=== PATIENT | male | born 1945 | race African-American/Black ===

== ENCOUNTER 2018-01-23 14:43 | Emergency (ER) | payer MEDICARE ==
[~2018-01-23] VITALS: Ht 185.4 cm; Wt 98.0 kg
[~2018-01-23 14:43] MED LIST: ACID CONTROL MA20 MG PO; AMLODIPINE BESYL5 MG PO; ANTI-DIARRHE2 M1 PO; BENADRYL25 MG OR; BICALUTAMIDE50 MG PO; COMPLERA PO; GLIPIZIDE ER10 M1 PO; GLIPIZIDE10 MG PO; HYDROCODONE/APAP PO; LISINOPRIL20 M1 OR; LISINOPRIL20 M1 PO; MELOXICAM7.5 MG PO; METFORMIN1000 MG PO; METFORMIN500 MG PO; METOPROL TAR25 M1 OR; NAPROXEN500 MG OR; NO MEDS; NORVIR100 MG PO; PRAVASTATIN20 MG PO; PREZISTA800 MG PO; TRUVADA PO; VICODIN1 TA1 PO
[2018-01-23] MEDS ORDERED: PERCOCET 5/325M1 TAB PO (16:28)
[2018-01-23 17:06] VITALS: BP 143/74
== END 2018-01-23 16:52 | disposition home or self-care (01) ==
LOC: ED 14:43
PROC: 2W3QX1Z Immobilization of Right Lower Leg using Splint (ICD-10-PCS; principal; 2018-01-23)
DX: S82.301A Unspecified fracture of lower end of right tibia, initial encounter for closed fracture (principal); S82.831A Other fracture of upper and lower end of right fibula, initial encounter for closed fracture; W18.30XA Fall on same level, unspecified, initial encounter; X50.1XXA Overexertion from prolonged static or awkward postures, initial encounter; Y93.01 Activity, walking, marching and hiking; Y92.009 Unspecified place in unspecified non-institutional (private) residence as the place of occurrence of the external cause; I10 Essential (primary) hypertension

== ENCOUNTER → 2018-02-11 10:00 | Emergency (ER) | payer MEDICARE ==
[~2018-02-11 10:00] MED LIST changes: +PERCOCET 5/325M1 TAB PO
== END | disposition left against medical advice (07) ==
LOC: LWOBS 10:00 → ED 10:00
DX: Z91.19 Patient's noncompliance with other medical treatment and regimen (principal)

== ENCOUNTER 2018-09-02 11:07 | Inpatient (IN) | payer MEDICARE, MEDICAID ==
[~2018-09-02] VITALS: Ht 185.4 cm; Wt 78.0 kg
[2018-09-02] MEDS ORDERED: LORTAB 7.57.5 MG PO (12:46)
[2018-09-02] MEDS ORDERED: TYLENOL325 MG PO (12:47)
[2018-09-02] MEDS ORDERED: ARTIFIC TEAR OU (12:48)
[2018-09-02] MEDS ORDERED: JANUVIA100 MG PO (12:48)
[2018-09-02] MEDS ORDERED: DOCUSATE CAL240 MG PO (12:48)
[2018-09-02] MEDS ORDERED: MIRALAX3350 NF PO (12:49)
[2018-09-02] MEDS ORDERED: MILK OF MAG30 ML/UDC PO (12:49)
[2018-09-02] MEDS ORDERED: LEVEMIR100 UNIT/M SC (12:49)
[2018-09-02] MEDS ORDERED: NOVOLOG FL100 UNIT/M SC (12:50)
[2018-09-02] MEDS ORDERED: ZYRTEC10 MG PO (12:50)
[2018-09-02] MEDS ORDERED: LISINOPRIL20 M1 PO (12:51)
[2018-09-05] VITALS (7 sets, daily range): BP systolic 126–156; BP diastolic 72–92
--- NOTE | 2018-09-05 17:25 | NUR ---
PT ARRIVED FROM OR VIA BED, WITH IV SITE INTACT. NO REDNESS OR EDEMA. DRESSING ON LEFT SHOULDER CDI WITH SLING IN PLACE. BRIEF IN PLACE PT STATED" I HAVE HAD A BM".
--- NOTE | 2018-09-05 17:45 | NUR ---
ASSESSMENT IS COMPLETED: IV SITE IS FREE FROM REDNESS OR EDEMA. HR IS REG,PULSES ARE STRONG X4, ABD IS SOFT WITH ACTIVE BS. BREATH SOUNDS ARE CLEAR. PT HAS A BRIEF ON , SOILED THE BRIEF. ASSISTING THE SMOKED MEAT PREPARER TO CLEAN PT UP. PT SCOOTS DOWN IN THE BED. HAS BEEN PULLED BACK IN BED., LEFT ARM IN THE SLING. DRESSING IN PLACE.
--- NOTE | 2018-09-05 20:00 | NUR ---
PATIENT RESTING IN BED AT THIS TIME-AWAKE ALERT AND ORIENTEDX3. PATIENT WITH POST-OP LEFT SHOULDER SURGERY. DRESSING TO LEFT SHOULDER IS CLEAN DRY AND INTACT. LEFT ARM IN SLING. CMS TO LEFT FINGERS WNL. ELEVATED ON PILLOWS. IV SITE TO RIGHT WRIST AREA WITH IVF LR PATENT AND INFUSING AT 100CC/HR. SCD'D IN PLACE. USE ICE PACK TO LEFT SHOULDERE INTERMITTANTLY. INSTRUCTED ON USE OF IS Q1H WHILE AWAKE XREPS OF 10. ABLE TO DEMONSTRATE ABILITY T USE DEVICE PROPERLY. SAFETY PRECAUTIONS REINFORCED.CALL LIGHT IN REACH. WILL CONT TO MONITOR.
[2018-09-06] VITALS (7 sets, daily range): BP systolic 154–177; BP diastolic 88–95
--- NOTE | 2018-09-06 | NUR ---
PATIENT APPEARS SLEEPING AT THIS TIME WITH EYES CLOSED AND HOB SLIGHTLY ELEVATED. SLING TO LEFT ARM IN PLACE. CMS TO LEFT FINGERS WNL. IVF PATENT AND INFUSING VIA RIGHT WRIST SITE. CALL LIGHT IN REACH. WILL CONT TO MONITOR.
--- NOTE | 2018-09-06 02:42 | NUR ---
RESPONDED TO PATIENT CALL LIGHT-FOUND URINAL WITH 300CC OF TIFFANIE URINE IN IT. ALSO FOUND THE BED TO BE WET AND SOILED. MAX ASSIST TO GET PATIENT OOB TO THE CHAIR. LINENS WERE COMPLETELY CHANGED. PATIENT MAX ASSIST BACK INTO BED. PATIENT WAS GIVEN PARTIAL BATH WITH SOAP AND WATER TO PERINEAL AND BUTTOCKS AREA. REPOSITIONED IN BED. LEFT SHOULDER DRESSING REMAINS IN PLACE. ICE PACK TO THE AFFECTED AREA FOR COMFORT. SLING REMAINS IN PLACE TO THE LEFT AREM. CMS TO LEFT FINGERS ARE WNL. PATIENT C/O 8/10 ON PAIN SCALE. MEDICATED WITH DILAUDID 1MG IVP FOR PAIN. PATIENT STATES THAT HE RECENTLY ALSO HAD SURGERY ON HIS RIGHT LE. NEEDS MAX ASSIST FOR TRANSFERS.SAFETY PRECAUTIONS REINFORCED. CALL LIGHT IN REACH. WILL CONT TO MONITOR.
[2018-09-06 05:19] LABS: HEMATOCRIT 38.7 % (39.0-50.0); HEMOGLOBIN 12.3 g/dl (14.0-18.0)
--- NOTE | 2018-09-06 05:42 | NUR ---
PATIENT RESTING IN BED WITH NO COMPLAINTS AT THIS TIME. CALL LIGHT IN REACH. WILL CONT TO MONITOR.
--- NOTE | 2018-09-06 07:05 | NUR ---
BEDSIDE REPORT RECEIVED BY LAWANDA. PT STATED HE VOMITED A SMALL AMOUNT. STATED I WILL MEDICATED HIM WITH ZOFRAN. PT DENIES ANY OTHER NEEDS AT THIS TIME. CALL LIGHT IN REACH.
--- NOTE | 2018-09-06 08:03 | NUR ---
ASSESSMENT DONE. PT IS A&O X3. REPS EVEN AND UNLABORED. MEDICATED PT WITH DILAUDID FOR PAIN IN LEFT SHOULDER 06/24 SEE EMAR. PT STATED THAT ZOFRAN HELPED WITH HIS NAUSEA. 20 RAC AT LR/100ML THAT INFUSING WELL. ENCOURAGE PT TO USE INCENTIVE SPIROMETER. PT VERBALIZED UNDERSTANDING. PT DENIES ANY OTHER NEEDS AT THIS TIME. SCD IN PLACE. SAFETY PRECAUTIONS REINFORCED AND CALL LIGHT IN REACH.
--- NOTE | 2018-09-06 10:16 | NUR ---
PT IS RESTING IN BED WITH NO S/S OF DISTRESS NOTED. PT DENIES NEEDS AT THIS TIME. CALL LIGHT IN REACH.
--- NOTE | 2018-09-06 11:50 | NUR ---
AT BEDSIDE TO ASSESS PT. SETUP PT FOR LUNCH. PT STATED PAIN COMES AND GOES. PT DENIES PAIN AT THIS TIME. CALL LIGHT IN REACH.
--- NOTE | 2018-09-06 11:55 | NUR ---
PT IS SITTING IN THE SIDE OF THE BED EATING HIS LUNCH WITH NO S/S OF DISTRESS NOTED. DR. CRUZ IN ROOM TO ASSESS. PT DENIES NEEDS AT THIS TIME. IN ROOM. CALL LIGHT IN REACH.
--- NOTE | 2018-09-06 14:03 | NUR ---
MEDICATED PT WITH ZOFRAN. PT VOMITED 50ML. VACCINE CUSTOMER REPRESENTATIVE IN ROOM TO CHANGE PT. PT DENIES ANY OTHER NEEDS AT THIS TIME. CALL LIGHT IN REACH.
--- NOTE | 2018-09-06 15:32 | NUR ---
PT IS RESTING IN BED WITH NO S/S OF DISTRESS NOTED. PT DENIES NAUSEA AT THIS TIME. PT DENIES NEEDS AT THIS TIME. CALL LIGHT IN REACH.
--- NOTE | 2018-09-06 16:13 | NUR ---
ATTEMPTED P.T. EVAL TODAY. HOWEVER, PT REFUSED STATING THAT HE HAD BEEN FEELING SICK AND WAS THROWING UP. AGREED TO PARTICIPATE TOMORROW.
--- NOTE | 2018-09-06 19:30 | NUR ---
PATIENT RESTING IN BED AT THIS TIME WITH EYES CLOSED AND APPEARS SLEEPING AT THIS TIME. RESP ARE EVEN AND UNLABORED. DRESSING TO LEFT SHOULDER HAS BEEN REMOVED AND SITE APPEARS WITHOUT ANY S/S OF INFECTION AT THIS TIME. CMS TO LEFT FINGERS WNL. IV SITE TO RIGHT AC INTACT WITH IVF PATENT AND INFUSING AT 100CC/HR. SITE REMAINS HEALTHY AT THIS TIME. CALL LIGHT IN REACH., WILL CONT TO MONITOR.
--- NOTE | 2018-09-06 23:54 | NUR ---
APPEARS SLEEPING AT THIS TIME WITH HOB SLIGHTLY ELEVATED AND EYES CLOSED. RESP ARE EVEN AND UNLABORED. CALL LIGHT IN REACH. WILL CONT TO MONITOR.
[2018-09-07] VITALS (7 sets, daily range): BP systolic 128–180; BP diastolic 74–97
--- NOTE | 2018-09-07 01:00 | NUR ---
PATIENT RESTING IN BED-EITHER INCONT OF URINE OR SPILLED THE URINAL. PATIENT ASSISTED WITH WASHING UP AND PERSONEL/VANCE CARE WITH SOAP AND H20. LINENS WERE CHANGED. PATIENT STILL ONLY TAKING SIPS OF PO FLUIDS-STATES THAT HIS THROAT IS SORE. STILL RESISTANT TO MAKE EFFORT TO GET OOB TO BSC AND OR INCREASE HIS ACTIVITY. STATES THAT IT HURTS TOO MUCH. SAFETY PRECAUTIONS REINFORCED. AND ENCOURAGED TO INCREASE ACTIVITY TO PREVENT ANY POST-OP COMPLICATIONS. ENCOURAGED USE OF IS DEMONSTRATED EARLIER. STATES THAT HE WILL DO IT. SAFETY PRECAUTIONS REINFORCED. CALL LIGHT IN REACH. WILL CONT TO MONITOR.
--- NOTE | 2018-09-07 04:24 | NUR ---
PATIENT RESTING IN BED-C/O LEFT SHOULDER AND THROAT PAIN. MEDICATED WITH PERCOCET 10/325MG PO FOR PAIN. STILL ONLY TAKING SIPS OF PO FLUIDS. IVF LR PATENT AND INFUSING AT 100CC/HR VIA RIGHT AC SITE. SAFETY PRECAUTIONS REINFORCED. CALL LIGHT IN REACH. WILL CONT TO MONITOR.
[2018-09-07 05:02] LABS: HEMATOCRIT 36.9 % (39.0-50.0); HEMOGLOBIN 11.9 g/dl (14.0-18.0); IMMATURE GRANULOCYTES 0.7 % (0.0-5.0); MEAN CELL VOLUME 85.2 fL CALC (80.0-100.0); MEAN CORPUSCULAR HGB 27.5 pG CALC (26.0-32.0); MEAN CORPUSCULAR HGB CONC 32.2 g/L CALC (32.0-36.0); NEUT# 6.82 thou/uL (1.82-7.42); RED BLOOD COUNT 4.33 mill/uL (4.70-6.10); RED CELL DISTRI WIDTH 13.6 % (11.5-15.5)
[2018-09-07 05:19] LABS: ALBUMIN 3.3 g/dL (3.2-5.0); ALKALINE PHOSPHATASE 140 u/l (38-126); BILIRUBIN, TOTAL 0.7 mg/dL (0.0-1.4); BUN 10 mg/dL (8-23); BUN/CREATININE RATIO 14 (12-20 (CALC)); CARBON DIOXIDE 26 mmol/l (22-30); CHLORIDE 100 mmol/l (95-108); CREATININE 0.7 mg/dL (0.7-1.3); GFR > 60 ML/MIN (>=60 (CALC)); GFR FOR AFR.AMER. > 60 ML/MIN (>=60 (CALC)); MAGNESIUM 1.7 mg/dL (1.6-2.3); POTASSIUM 3.8 mmol/l (3.5-5.1); SGOT/AST 26 u/l (19-48); TOTAL PROTEIN 6.6 g/dL (6.3-8.2)
[2018-09-07 05:23] LABS: ANION GAP 13 (6-22 (CALC)); SODIUM 135 mmol/l (137-146)
--- NOTE | 2018-09-07 08:15 | NUR ---
ASSESSMENT IS COMPLETED: IV SITE IS FREE FROM REDNESS OR EDEMA. HR IS REG,PULSES ARE STRONG X4, ABD IS SOFT WITH ACTIVE BS. BREATH SOUNDS ARE CLEAR, BILATERALLY. LEFT ARM IS CDI. CONTINUE TO OSBERVE AND MONITOR.
--- NOTE | 2018-09-07 12:15 | NUR ---
PT IS RELAXING IN THE WC FROM [facility] PHYSICAL THERAPY PLACED IN THE CHAIR. TOLERATING WELL. IV SITE IS FREE FROM REDNESS OR EDEMA. CONTINUE TO OSBERVE AND MONITOR.
--- NOTE | 2018-09-07 16:15 | NUR ---
PT C/O BEING IN THE CHAIR FOR 3 HRS, IV SITE REMAINS FREE FROM REDNESS OR EDEMA. NO DISTRESS NOTED. PHYSICAL THERAPY PLACED BACK INTO BED AT 1430. CONTINUE TO OBSERVE AND MONITOR.
--- NOTE | 2018-09-07 19:28 | NUR ---
PATIENT RESTING IN BED WITH HOB SLIGHTLY ELEVATED AND EYES CLOSED. APPEARS SLEEPING WITH RESP EVEN AND UNLABORED. CALL LIGHT IN REACH. WILL CONT TO MONITOR.
--- NOTE | 2018-09-07 21:10 | NUR ---
PATIENT RESTING IN BED AWAKE ALERT AND ORIENTEDX3. PATIENT MEDICATED FOR POST-OP LEFT SHOULDER PAIN WITH PERCOCET ORDERED. SALINE LOCK TO RIGHT AC IN PLACE AND APPEARS HEALTHY AT THIS TIME. [id number] WITH NOVALOG 2UNITS SQ RIGHT ARM. SAFETY PRECAUTIONS REINFORCED. CALL LIGHT IN REACH.
--- NOTE | 2018-09-07 23:27 | NUR ---
APPEARS SLEEPING AT THIS TIME WITH HOB ELEVATED AND EYES CLOSED. RESP ARE EVEN AND UNLABORED. CALL LIGHT IN REACH. WILL CONT TO MONITOR.
--- NOTE | 2018-09-08 02:53 | NUR ---
PATIENT APPEARS SLEEPING AT THIS TIME WITH EYES CLOSED AND HOB SLIGHTLY ELEVATED. RESP ARE EVEN AND UNLABORED. CALL LIGHT IN REACH. WILL CONT TO MONITOR.
--- NOTE | 2018-09-08 03:41 | NUR ---
URINAL EMPTIED FOR 400CC OF TIFFANIE URINE. PATIENT MEDICATED WITH PERCOCET FOR C/O PAIN-7/10 ON PAIN SCALE. PATIENT EATING SNACK OF VANILLA PUDDING. SAFETY PRECAUTIONS REINFORCED. CALL LIGHT IN REACH. WILL CONT TO MONITOR.
[2018-09-08 03:55] VITALS: BP 154/92
--- NOTE | 2018-09-08 04:35 | NUR ---
PATIENT MAX ASSIST OOB TO WHEELCHAIR AND INTO BR FOR SHOWER-COMPLETE LINEN CHANGE WAS DONE AND PATIENT ASSISTED WITH SHOWER. BACK, VANCE, AND FOOT CARE ASSISTED WITH. STRESSED THE IMPORTANCE OF PROPER FOOT CARE AND INSPECTIONS IN DIAB PATIENT. PATIENT ASSISTED BACK TO THE BED. REPOSITIONED IN BNED. HOB SLIGHTLY ELEVATED, SAFETY PRECAUTIONS REIFORCED. CALL LIGHT IN REACH. WILL CONT TO MONITOR.
[2018-09-08 05:39] LABS: HEMOGLOBIN 10.6 g/dl (14.0-18.0); MEAN CELL VOLUME 85.9 fL CALC (80.0-100.0); MEAN CORPUSCULAR HGB 27.6 pG CALC (26.0-32.0); MEAN CORPUSCULAR HGB CONC 32.1 g/L CALC (32.0-36.0); NEUT# 5.7 thou/uL (1.82-7.42); RED BLOOD COUNT 3.84 mill/uL (4.70-6.10); RED CELL DISTRI WIDTH 13.6 % (11.5-15.5)
[2018-09-08 05:44] LABS: ALKALINE PHOSPHATASE 125 u/l (38-126); ANION GAP 11 (6-22 (CALC)); BILIRUBIN, TOTAL 0.6 mg/dL (0.0-1.4); BUN 13 mg/dL (8-23); BUN/CREATININE RATIO 15 (12-20 (CALC)); CARBON DIOXIDE 28 mmol/l (22-30); CHLORIDE 101 mmol/l (95-108); CREATININE 0.8 mg/dL (0.7-1.3); GFR > 60 ML/MIN (>=60 (CALC)); GFR FOR AFR.AMER. > 60 ML/MIN (>=60 (CALC)); MAGNESIUM 1.8 mg/dL (1.6-2.3); SGOT/AST 21 u/l (19-48); SODIUM 136 mmol/l (137-146); TOTAL PROTEIN 6.3 g/dL (6.3-8.2)
--- NOTE | 2018-09-08 07:05 | NUR ---
PT REPORT RECIEVED FROM AMANDA WEBBER. PT SLEEPING IN BED NO S/S OF DISTRESS. CALL LIGHT IN REACH. WILL CONTINUE TO MONITOR
[2018-09-08 07:47] VITALS: BP 159/91
--- NOTE | 2018-09-08 07:47 | NUR ---
PT ASSESSMENT COMPLETE. PT A/O X3. SPEECH IS CLEAR. IRREGULAR HEART SOUNDS NOTED. RESP EVEN AND UNLABORED. LUNG SOUNDS CLEAR. INCENTIVE SPIROMETER AT BEDSIDE, ENCOURAGED USE. BOWEL SOUNDS HYPOACTIVE. PT STATES LAST BM 09/07/18. STRONG RADIAL PULSES, WEAK PEDAL PULSES. LEGS ELEVATED. RT SHOULDER POST OP, JENNIFER. MINIAML SWELLING AROUND INCISION AREA. REPOSITONED RT SHOULDER FOR COMFORT. #20 RAC SL. FLUSHED AND PATENT. SITE APPEARS HEALTHY. PT DENIES PAIN OR NEEDS AT THIS TIME. URINAL AT BEDSIDE. PLAN OF CARE DISCUSSED. SAFETY PRECAUTIONS IN PLACE. CALL LIGHT IN REACH. WILL CONTINUE TO MONITOR
--- NOTE | 2018-09-08 10:16 | NUR ---
Pt. found resting in bed, treatment plan explain and pt. in agreement to participate in physical therapy. HOB elevated for AROM L hip flexion/extension x10 repetitions, PROM R hip flexion/extension x10 repetitions, R and L quad. sets x10 repetitions, R and L glut. sets x10 repetitions and in sitting we practiced sit to stand using RUE for push off and LLE for lifting x5 repetitions with max assist x2 (R walking boot on). The pt. also participated in functional activity of transfer training for supine to sit with mod assist x2 and then from bed to wheelchair using slidding boad with max. assist x2 and continual verbal/tactile cues to maintain L shoulder restrictions. Transfer from wheel chair to bed using slidding board with max. assist x2 for return to resting in bed after treatment with continual verbal/tactile cues. HOB was elevated and heels off loading with pillows. Gait belt and non skid socks used during treatment. Call light reviewed and left within reach, pt. left resting comfortably without questions or concerns.
[2018-09-08 11:30] VITALS: BP 99/53
--- NOTE | 2018-09-08 12:00 | NUR ---
PT SITTING UP IN BED EATING LUNCH. DENIES ANY PAIN OR NEEDS AT THIS TIME. RESP EVEN AND UNLABORED. LEGS ELEVATED. URINAL AT BEDSIDE. WILL CONTINUE TO MONITOR.
--- NOTE | 2018-09-08 13:26 | NUR ---
IN W/ TETE,[employer] MILL OPERATOR TO CHANGE PT, AFTER CLEANING. PT C/O ACHING LT SHOULDER PAIN 6 OUT OF 10 ON PAIN SCALE. MEDICATED WITH TWO 10/325 PERCOCET PO. ICE APPLIED TO LT SHOULDER. PT DENIES ANY FURTHER NEEDS. CALL LIGHT IN REACH. WILL CONTINUE TO MONITOR.
[2018-09-08 15:31] VITALS: BP 123/81
--- NOTE | 2018-09-08 16:45 | NUR ---
PT LAYING IN BED. NO S/S OF DISTRESS. RESP EVEN AND UNLABORED. INCENTIVE SPIROMETER AT BEDSIDE. LEGS ELEVATED ON PILLOW. PT DENIES ANY PAIN OR NEEDS AT THIS TIME. URINAL AT BEDSIDE. CALL LIGHT IN REACH. WILL CONTINUE TO MONITOR
[2018-09-08 18:40] VITALS: BP 114/76
--- NOTE | 2018-09-08 19:05 | NUR ---
REPORT RECEIVED FROM DAY NURSE. PT IS IN BED W/LIGHTS AND TV ON. PT REQUESTED TO BE REPOSITIONED W/PILLOWS/ASSISTANCE PROVIDED. DENIES ANY OTHER NEEDS AT THIS TIME. CALL LIGHT IS IN HAND AND PT ENCOURAGED TO CALL.
--- NOTE | 2018-09-08 21:40 | NUR ---
PT MEDICATED ORDERS PROVIDE AND FOR PAIN REPORTED 5/10 IN L SHOULDER AND R.ANKLE. PT ASSESSED AT THIS TIME, LUNG SOUNDS ARE CLEAR, ABD SOFT/NON-TENDER, WEAKNESS TO RIGHT SIDE, INCISION TO LEFT SHOULDER APPEARS HEALTHY W/DERMABOND INTACT. PT POSITIONED W/PILLOWS FOR COMFORT. PT REPORTS BM TODAY NORMAL/SOFT. LOCX3. NO OTHER S/O DISTRESS NOTED. WILL CONTINUE TO MONITOR. CALL LIGHT IN HAND, LEFT W/LIGHTS LOW AND TV ON.
[2018-09-08 23:58] VITALS: BP 119/68
--- NOTE | 2018-09-09 01:10 | NUR ---
PT APPEARS TO BE SLEEPING AT THIS TIME. NO S/S OF DISTRESS NOTED. CALL LIGHT AT SIDE.
--- NOTE | 2018-09-09 03:15 | NUR ---
PT APPEARS TO BE SLEEPING AT THIS TIME. NO S/S OF DISTRESS NOTED. CALL LIGHT AT SIDE.
[2018-09-09 03:58] VITALS: BP 117/77
--- NOTE | 2018-09-09 04:55 | NUR ---
PT ASSISTED IN USING URINAL/360CC OF DARK YELLOW URINE OUTPUT. PT ASSISTED IN REPOSITIONING, REMINDED OF IS USE AND EDUCATED ON USE. DENIES PAIN AT THIS TIME, BUT ENCOURAGED TO CALL IF HE NEEDS ANYTHING. CALL LIGHT ON LAP, LIGHTS ON LOW AND TV ON. PT IS TALKATIVE AT THIS TIME AND NO S/S OF DISTRESS NOTED. WILL CONTINUE TO MONITOR.
[2018-09-09 08:20] VITALS: BP 146/83
--- NOTE | 2018-09-09 08:20 | NUR ---
ASSESSMENT IS COMPLETED: IV SITE IS FREE FROM REDNESS OR EDEMA. HR IS REG,PULSES ARE STRONG X4, ABD IS SOFT WITH ACTIVE BS. BREATH SOUNDS ARE CLEAR, BILATERALLY. NO C/O SOB, LEFT ARM DRESSING IS INTACT, CONTINUE TO OBSERVE AND MONITOR.
[2018-09-09 11:30] VITALS: BP 151/78
--- NOTE | 2018-09-09 12:00 | NUR ---
PT IS RELAXING IN BED WITH NO DISTRESS NOTED. IV SITE IS FREE FROM REDNESS OR EDEMA. CONTINUE TO OBSERVE AND MONITOR.
[2018-09-09] MEDS ORDERED: LORTAB 7.57.5 MG PO (12:56)
[2018-09-09] MEDS ORDERED: AMLODIPINE BESYL5 MG PO (13:01)
[2018-09-09] MEDS ORDERED: CARVEDILOL3.125 MG PO (13:01)
--- NOTE | 2018-09-09 15:01 | NUR ---
SPOKE WITH CAREN HADLEY AT [facility] THEY WILL BE SENDING AN AID OVER TO TRANSPORT PT BACK THERE. CONTINUE TO OSBERVE AND MONITOR
--- NOTE | 2018-09-09 15:25 | NUR ---
CHELSEA PATEL. GAVE REPORT. ALL BELONGINGS SENT WITH PT AND MOULDER OPERATOR FROM FACILITY
--- NOTE | 2018-09-09 16:02 | NUR ---
IV SITE DISCONTINEUD CATHETER INTACT. NO RDNESS OR EDEMA. DISCHARGE INSTRUCTIOMS GIVEN TO FACILITY.
== END 2018-09-09 15:20 | DRG 483 ==
LOC: MS2 09-05 10:15 → OR 09-05 14:15 → MS2 09-09 15:20
PROVIDERS: Internal Medicine Nephrology; ADMIT Orthopaedic Surgery; ATTEND Orthopaedic Surgery
PROC: 0RRK00Z Replacement of Left Shoulder Joint with Reverse Ball and Socket Synthetic Substitute, Open Approach (ICD-10-PCS; principal; 2018-09-05)
PROC: 0LS40ZZ Reposition Left Upper Arm Tendon, Open Approach (ICD-10-PCS; 2018-09-05)
PROC: 3E0T3BZ Introduction of Anesthetic Agent into Peripheral Nerves and Plexi, Percutaneous Approach (ICD-10-PCS; 2018-09-05)
DX: M19.012 Primary osteoarthritis, left shoulder (principal); S46.212A Strain of muscle, fascia and tendon of other parts of biceps, left arm, initial encounter; M75.112 Incomplete rotator cuff tear or rupture of left shoulder, not specified as traumatic; E11.9 Type 2 diabetes mellitus without complications; I10 Essential (primary) hypertension; M06.9 Rheumatoid arthritis, unspecified; D63.8 Anemia in other chronic diseases classified elsewhere; K59.09 Other constipation; X58.XXXA Exposure to other specified factors, initial encounter; Z21 Asymptomatic human immunodeficiency virus [HIV] infection status; Z85.46 Personal history of malignant neoplasm of prostate; Z79.4 Long term (current) use of insulin
CPT/HCPCS: C9290; J1650; J2710

== ENCOUNTER 2019-01-21 21:05 | Emergency (ER) | payer MEDICARE, MEDICAID ==
[~2019-01-21] VITALS: Ht 185.4 cm; Wt 79.0 kg
[~2019-01-21 21:05] MED LIST changes: +ARTIFIC TEAR OU; +CARVEDILOL3.125 MG PO; +DOCUSATE CAL240 MG PO; +JANUVIA100 MG PO; +LEVEMIR100 UNIT/M SC; +LORTAB 7.57.5 MG PO; +MILK OF MAG30 ML/UDC PO; +MIRALAX3350 NF PO; +NOVOLOG FL100 UNIT/M SC; +TYLENOL325 MG PO; +ZYRTEC10 MG PO
[2019-01-21 22:17] LABS: IMMATURE GRANULOCYTES 0.9 % (0.0-5.0); MEAN CELL VOLUME 86.9 fL CALC (80.0-100.0); NEUT# 7.07 thou/uL (1.82-7.42); RED BLOOD COUNT 4.67 mill/uL (4.70-6.10); RED CELL DISTRI WIDTH 14.3 % (11.5-15.5)
[2019-01-21 22:29] LABS: ACT PARTIAL THROMBO TIME 24.9 SECONDS (20.0-32.5); PROTHROMBIN TIME 10.2 SECONDS (9.0-12.5)
[2019-01-21 22:30] LABS: ALKALINE PHOSPHATASE 168 u/l (38-126); AMYLASE 104 u/l (30-110); BILIRUBIN, TOTAL 0.7 mg/dL (0.0-1.4); BUN 17 mg/dL (8-23); BUN/CREATININE RATIO 17 (12-20 (CALC)); CARBON DIOXIDE 28 mmol/l (22-30); CHLORIDE 105 mmol/l (95-108); ETHYL ALCOHOL 0 mg/dl (0-30); GFR > 60 ML/MIN (>=60 (CALC)); GFR FOR AFR.AMER. > 60 ML/MIN (>=60 (CALC)); LIPASE 187 u/l (23-300); POTASSIUM 4.3 mmol/l (3.5-5.1); SGOT/AST 22 u/l (19-48)
[2019-01-21 22:32] LABS: HEMATOCRIT 40.6 % (39.0-50.0); HEMOGLOBIN 12.6 g/dl (14.0-18.0)
[2019-01-21 22:39] LABS: ALBUMIN 4.4 g/dL (3.2-5.0); ANION GAP 15 (6-22 (CALC)); SODIUM 144 mmol/l (137-146); TOTAL PROTEIN 8.2 g/dL (6.3-8.2)
[2019-01-22 05:49] VITALS: BP 133/78
== END 2019-01-22 05:25 | disposition short-term general hospital (02) ==
LOC: ED 21:05
PROVIDERS: Emergency Medicine
DX: K92.2 Gastrointestinal hemorrhage, unspecified (principal); I10 Essential (primary) hypertension; E11.9 Type 2 diabetes mellitus without complications
CPT/HCPCS: S0164

== ENCOUNTER 2019-09-12 15:54 | Inpatient (IN) | payer MEDICARE, MEDICAID ==
[~2019-09-12] VITALS: Ht 185.4 cm; Wt 76.0 kg
--- NOTE | 2019-09-12 16:13 | NUR ---
PT TAKEN BACK TO ER12 BY WC AND ASSISTED x3 TO BED. PT A&Ox3, JOKING WITH STAFF.
--- NOTE | 2019-09-12 16:29 | NUR ---
DR SUGGS AT BEDSIDE FOR NEURO ASSESSMENT AT THIS TIME
[2019-09-12 16:48] LABS: GFR 59 ML/MIN (>=60 (CALC)); GFR FOR AFR.AMER. > 60 ML/MIN (>=60 (CALC))
[2019-09-12 16:50] LABS: HEMATOCRIT 39.3 % (39.0-50.0); HEMOGLOBIN 12.3 g/dl (14.0-18.0); IMMATURE GRANULOCYTES 1.7 % (0.0-5.0); MEAN CELL VOLUME 86.6 fL CALC (80.0-100.0); MEAN CORPUSCULAR HGB 27.1 pG CALC (26.0-32.0); MEAN CORPUSCULAR HGB CONC 31.3 g/L CALC (32.0-36.0); NEUT# 4.34 thou/uL (1.82-7.42); RED BLOOD COUNT 4.54 mill/uL (4.70-6.10); RED CELL DISTRI WIDTH 13.5 % (11.5-15.5)
[2019-09-12] MEDS ORDERED: JANUVIA100 MG PO (16:53)
[2019-09-12] MEDS ORDERED: ZESTRIL10 M1 PO (16:54)
[2019-09-12 16:56] LABS: ANION GAP 13 (6-22 (CALC)); BUN 20 mg/dL (8-23); BUN/CREATININE RATIO 18 (12-20 (CALC)); CARBON DIOXIDE 27 mmol/l (22-30); CHLORIDE 105 mmol/l (95-108); CREATININE 1.1 mg/dL (0.7-1.3); GFR > 60 ML/MIN (>=60 (CALC)); GFR FOR AFR.AMER. > 60 ML/MIN (>=60 (CALC)); POTASSIUM 4.5 mmol/l (3.5-5.1); SODIUM 140 mmol/l (137-146)
--- NOTE | 2019-09-12 17:10 | NUR ---
PT RETURNED FROM CT; MONITORING DEVICES APPLIED; PT DENIES ANY PAIN OR DISCOMFORT; VSS; PT ALERT AND ORIENTED X 3; NUMBNESS AND TINGLING TO RIGHT HAND; WILL CONTINUE TO MONITOR
[2019-09-12] MEDS ORDERED: MULTIVITAMI3 (17:14)
[2019-09-12] MEDS ORDERED: CARVEDILOL6.25 MG PO (17:16)
[2019-09-12] MEDS ORDERED: TRESIBA FL100 UNIT/M SC (17:16)
[2019-09-12] MEDS ORDERED: CEFPODOXIME PR100 MG PO (17:17)
--- NOTE | 2019-09-12 17:59 | NUR ---
PT RESTING ON STRETCHER; DENIES ANY CHANGE IN NUMBNESS OR TINGLING IN RIGHT HAND; DENIES ANY PAIN OR DISCOMFORT; VSS;
--- NOTE | 2019-09-12 18:00 | NUR ---
DR SUGGS AT BEDSIDE TO DISCUSS POC
--- NOTE | 2019-09-12 18:36 | NUR ---
PT REPOSITIONED AND LINENS CHANGED; PT DENIES ANY PAIN OR N/V AT THIS TIME; NO NEW SYMPTOMS OF NUMBESS NOTED; VSS; WILL CONTINUE TO MONITOR
--- NOTE | 2019-09-12 18:56 | NUR ---
REPORT CALLED TO AMANDA GUSTAFSON-
--- NOTE | 2019-09-12 19:09 | NUR ---
PT TO MEDSURG VIA STRETCHER;PT IN STABLE CONDITION AT THIS TIME
[2019-09-12 19:15] VITALS: BP 145/75
--- NOTE | 2019-09-12 20:00 | NUR ---
PATIENT ADMITTED FROM ER VIA STRETCHER WITH ER STAFF IN ATTENDANCE. PATIENT IS MAX TRASFER FROM STRETCHER TO BED. PATIENT IS AWAKE ALERT AND ORIENTEDX3. ADMITTED FROM R. TELE MONITOR IN PLACE. SALINE LOCK TO LEFT AC INTACT-APPEARS HEALTHY AT THIS TIME. [id number]. SANDWICH AND SOUP PROVIDED. STEPHENANA LUISA HELD FOR BS-75. PATIENT WITH UNEQUAL HAND GRASP. LEFT GREATER THAN RIGHT. STATES NO NUMBNESS AT THIS TIME TO RIGHT HAND. STATES THAT IT IS NOT WORKING LIKE IT NORMALLY DOES. SAFETY PRECAUTIONS REVIEWED WITH PATIENT. INSTRUCTED ON USE OF NURSE CALL LIGHT SYSTEM, TV REMOTE AND PHONE. CALL LIGHT IN REACH. WILL CONT TO MONITOR.
--- NOTE | 2019-09-12 21:00 | NUR ---
PATIENT RESTING IN BED. IVF NS HUNG AND INFUSING AT 100CC/HR ORDERED. LORTAB GIVEN FOR C/O PAIN. SAFETY PRECAUTIONS REINFORCED. CALL LIGHT IN REACH. WILL CONT TO MONITOR.
[2019-09-13] VITALS (7 sets, daily range): BP systolic 130–158; BP diastolic 70–100
--- NOTE | 2019-09-13 00:37 | NUR ---
PATIENT APPEARS SLEEPING AT THIS TIME WITH HIS EYES CLOSED AND HOB ELEVATED SLIGHTLY. RESPS ARE EVEN AND UNLABORED. IVF PATENT AND INFUSING IA LEFT AC SITE. SITE REMAINS HEALTHY AT THIS TIME. CALL LIGHT IN REACH. WILL CONT TO MONITOR,
[2019-09-13 04:53] LABS: HEMATOCRIT 36.2 % (39.0-50.0); HEMOGLOBIN 11.4 g/dl (14.0-18.0); IMMATURE GRANULOCYTES 1.7 % (0.0-5.0); MEAN CELL VOLUME 86.2 fL CALC (80.0-100.0); MEAN CORPUSCULAR HGB 27.1 pG CALC (26.0-32.0); MEAN CORPUSCULAR HGB CONC 31.5 g/L CALC (32.0-36.0); NEUT# 3.56 thou/uL (1.82-7.42); RED BLOOD COUNT 4.2 mill/uL (4.70-6.10); RED CELL DISTRI WIDTH 13.4 % (11.5-15.5)
--- NOTE | 2019-09-13 05:00 | NUR ---
PATIENT VOIDED 450 IN URINAL AND ALSO WAS INCONT OF LARGE AMT OF URINE. PERICARE WAS DONE AND LINENS WERE CHANGED. DUODERM APPLIED TO SMALL OPENAREA TO RIGHT BUTTOCKS. BARRIER CREAM APPLIED TO SCROTUM. TURN AND REPOSITIONED. IVF PATENT AND INFUSING VIA LEFT AC SITE AT 100CC/HR. SITE REMAINS HEALTHY. TELE MONITOR IN PLACE. SAFETY PRECAUTIONS REINFORCED. CALL LIGHT IN REACH. WILL CONT TO MONITOR.
[2019-09-13 05:16] LABS: ANION GAP 11 (6-22 (CALC)); BUN 17 mg/dL (8-23); BUN/CREATININE RATIO 19 (12-20 (CALC)); CARBON DIOXIDE 24 mmol/l (22-30); CHLORIDE 108 mmol/l (95-108); CREATININE 0.9 mg/dL (0.7-1.3); GFR > 60 ML/MIN (>=60 (CALC)); GFR FOR AFR.AMER. > 60 ML/MIN (>=60 (CALC)); MAGNESIUM 2.1 mg/dL (1.6-2.3); POTASSIUM 4.1 mmol/l (3.5-5.1); SODIUM 140 mmol/l (137-146)
--- NOTE | 2019-09-13 08:20 | NUR ---
ASSESSMENT IS COMPLETED: IV SITE IS FREE FROM REDNESS OR EDEMA. HR IS REG,PULSES ARE STRONG X4, ABD IS SOFT WITH ACTIVE BS, BREATH SOUNDS ARE CLEAR,BILATERALLY. PT IS INCONTINENT OF UA. CONTINUE TO OSBERVE AND MONITOR
--- NOTE | 2019-09-13 12:19 | NUR ---
LEFT A MESSAGE WITH JERROD AT [facility]
--- NOTE | 2019-09-13 12:45 | NUR ---
PT HAS BEEN RELAXING IN BED WITH NO DISTRESS NOTED. IV SITE IS FREE FROM REDNESS OR EDEMA.
--- NOTE | 2019-09-13 12:52 | NUR ---
LEFT A MESSAGE WITH NIDHI HADLEY RE: CONSULTATION IN ROOM 278
--- NOTE | 2019-09-13 13:56 | NUR ---
SELVIN LABOY FROM DR. BECK. OFFICE. COMING TO SEE PT.
--- NOTE | 2019-09-13 16:45 | NUR ---
PT REMAINS RELAXING IN BED WITH NO DISTRESS NOTE.
--- NOTE | 2019-09-13 19:30 | NUR ---
PATIENT RESTING IN BED-SPILLED COFFEE IN BED. PATIENT WAS WASHED UP AND LINENS WERE CHANGED. PATIENT IS AWAKE ALERT AND ORIENTEDX3. TELE MONITOR IN PLACE. IVF PATENT AND INFUSING VIA LEFT AC SITE. SITE APPEARS HEALTHY AT THIS TIME. SAFETY PRECAUTIONS REINFORCED. CALL LIGHT IN REACH. WILL CONT TO MONITOR.
--- NOTE | 2019-09-13 21:00 | NUR ---
PATIENT RESTING IN BED-WATCHING TV. ACCU-CHECK IS 106-PT REFUSED LEVEMIR AND NO NOVALOG AT THIS TIME. PATIENT PROVIDED WITH HS SNACK-CRACKERS AND PEANUT BUTTER. VOIDED 300CC OF YELLOW URINE IN URINAL. TELE MONITOR IN PLACE. IVF PATENT AND INFUSING VIA LEFT AC SITE AT 100CC/HR. HAND GRASP ARE EQUAL AND STRONG TONIGHT. DENIES ANY NUMBNESS OR TINGLING BUT STATES THAT HE IS STILL HAVING SOME TROUBLE PICKING UP AND HOLDING ONTO THINGS. MEDICATED EARLIER FOR PAIN WITH ORTAB WITH GOOD EFFECT. SAFETY PRECAUTIONS REINFORCED. CALL LIGHT IN REACH. WILL CONT TO MONITOR.
--- NOTE | 2019-09-13 22:19 | NUR ---
PATIENT RESTING IN BED-MEDICATED WITH LOVENOX ORDERED. NO COMPLAINTS. CALL LIGHT IN REACH. WILL CONT TO MONITOR
--- NOTE | 2019-09-14 00:49 | NUR ---
PATIENT RESTING IN BED AT THIS TIME WITH HOB SLIGHTLY ELEVATED AND EYES CLOSE. APPEARS SLEEPING. RESP ARE EVEN AND UNLABORED. TELE MONITOR IN PLACE. IVF PATENT AND INFUSING AT 100CC/HR VIA LEFT AC SITE. CALL LIGHT IN REACH. WILL CONT TO MONITOR.
--- NOTE | 2019-09-14 04:00 | NUR ---
PATIENT RESTING IN BED-VOIDNING QS TIFFANIE URINE IN URINAL. TELE MONITOR IN PLACE. IVF PATENT AND INFUSING VIA LEFT AC SITE. CALL LIGHT IN REACH. WILL CONT TO MONITOR.
[2019-09-14 04:15] VITALS: BP 142/78
[2019-09-14 07:45] VITALS: BP 131/89
--- NOTE | 2019-09-14 07:45 | NUR ---
ASSESSMENT IS COMPLETED: IV SITE IS FREE FROM REDNESS OR EDEMA. HR IS REG, PULSES ARE STRONG X4, ABD IS SOFT WITH ACTIVE BS. BREATH SOUNDS ARE CLEAR,BILATERALLY. TELE MONITOR IN PLACE. CONTINUE TO OSBERVE AND MONITOR.
[2019-09-14 10:51] VITALS: BP 121/79
--- NOTE | 2019-09-14 11:43 | NUR ---
Pt is a 74 y.o. male referred for a Clinical Bedside Swallow Evaluation d/t recent dx of (left) CVA. Pt presents as edontulous, but reports he "doesn't always eat with my teeth; Swallow Evaluation completed w/o dentures. Pt presents with WFL swallow function, despite edontulous status and no overt clinical s/s of aspiration/penetration of any PO trials administered . INTERNATIONAL STUDENT COUNSELOR recommending continued regular texture diet (per pt preference d/t dental status), with regular (thin) liquids at this time. DIET: Regular solids (per pt preference/dental status), thin liquids AMPAC Score: 14
[2019-09-14 11:58] VITALS: BP 134/71
--- NOTE | 2019-09-14 12:45 | NUR ---
PT IS RELAXING IN BED , WENT FOR AN ECHO . NO DISTRESS NOTED. IV SITE IS FREE FROM REDNESS OR EDEMA.
--- NOTE | 2019-09-14 12:57 | NUR ---
PT BEING TRANSPORTED TO HAVE AN ECHO COMPLETED
[2019-09-14 15:14] VITALS: BP 144/76
--- NOTE | 2019-09-14 16:30 | NUR ---
PT IS RELAXING IN BED WITH NO DISTRESS NOTED. IV SITE IS FREE FROM REDNESS OR EDEMA.
--- NOTE | 2019-09-14 19:05 | NUR ---
REPORT FROM MARTHA HADLEY. PT SITTING UP IN BED. ALERT AND ORIENTED. PT DENIES ANY PAIN OR DISCOMFORT. NO APPARENT DISTRESS NOTED. IV SITE APPEARS HEALTHY. PRODUCTION CONTROL EXPEDITER IN PLACE. DISCUSSED POC. PT VERBALIZED UNDERSTANDING. CALL LIGHT WITHIN REACH. WILL CONTINUE TO MONITOR.
[2019-09-14 19:20] VITALS: BP 136/76
--- NOTE | 2019-09-14 21:08 | NUR ---
PT REFUSED INSULINS FOR BS OF 219. EDUCATION PROVIDED AT THIS TIME.
--- NOTE | 2019-09-15 00:04 | NUR ---
PT RESTING IN BED. NO APPARENT DISTRESS NOTED. PT REMAINS ALERT AND ORIENTED X3. DENIES ANY PAIN OR DISCOMFORT. SNACK PROVIDED UPON REQUEST. CALL LIGHT WITHIN REACH. WILL CONTINUE TO MONITOR.
[2019-09-15 03:55] VITALS: BP 138/71
--- NOTE | 2019-09-15 04:25 | NUR ---
PT RESTING IN BED WITH EYES CLOSED. NO APPARENT DISTRESS NOTED. PT WAKES EASILY. DENIES ANY PAIN OR DISCOMFORT. CALL LIGHT WITHIN REACH. WILL CONTINUE TO MONITOR.
[2019-09-15 08:00] VITALS: BP 139/91
--- NOTE | 2019-09-15 08:00 | NUR ---
ASSESSMENT DONE. PT IS A&O X3. TELE IN PLACE. RESPS EVEN AND UNLABORED. PT DENIES PAIN. SAFETY PRECAUTIONS REINFORCED AND CALL LIGHT IN REACH.
--- NOTE | 2019-09-15 10:26 | NUR ---
PICTURE TAKEN OF COCCYX AND APPLIED DUODERM. VANCE CARE DONE. TURN PT TO LEFT SIDE. CALL LIGHT IN REACH.
--- NOTE | 2019-09-15 10:56 | NUR ---
PATIENT PERFORMED SUPINE LE STRENGTHENING EXERCISES DONE FOR 10 REPS ON EACH LE. EXERCISES INCLUDE: SLR, HIP ABDUCTION, HEEL SLIDES, QUADRICEPS MUSCLE SETTING (6 SECS HOLD), AND ANKLE DF/PF. PATIENT REFUSED TO PERFORM STS TODAY. AMPAC = 8
--- NOTE | 2019-09-15 11:30 | NUR ---
PT IS EATING HIS LUNCH WITH NO S/S OF DISTRESS NOTED. CALL LIGHT IN REACH.
[2019-09-15 11:54] VITALS: BP 140/78
[2019-09-15] MEDS ORDERED: ASPIRIN EC325 M1 PO (12:08)
--- NOTE | 2019-09-15 15:36 | NUR ---
PT IS RESTING IN BED WITH NO S/S OF DISTRESS NOTED. PT DENIES NEEDS. CALL LIGHT IN REACH.
--- NOTE | 2019-09-15 16:26 | NUR ---
Discharge instructions given. Patient verbalizes understanding of same. Discharged in stable condition via Wheelchair to [facility] with staff. All belongings sent with pt.
--- NOTE | 2019-09-15 16:35 | NUR ---
[facility]
== END 2019-09-15 16:26 | DRG 66 ==
LOC: ED 15:54 → ED-I 17:53 → ED 17:56 → MS2 17:57
PROVIDERS: Family Medicine; ADMIT Internal Medicine; ATTEND Internal Medicine
DX: I63.89 Other cerebral infarction (principal); I10 Essential (primary) hypertension; R20.2 Paresthesia of skin; R20.0 Anesthesia of skin; G83.23 Monoplegia of upper limb affecting right nondominant side; R47.1 Dysarthria and anarthria; M54.2 Cervicalgia; M06.9 Rheumatoid arthritis, unspecified; R29.706 NIHSS score 6; E11.40 Type 2 diabetes mellitus with diabetic neuropathy, unspecified; E78.5 Hyperlipidemia, unspecified; K21.9 Gastro-esophageal reflux disease without esophagitis; M19.90 Unspecified osteoarthritis, unspecified site; Z21 Asymptomatic human immunodeficiency virus [HIV] infection status; Z79.4 Long term (current) use of insulin; Z99.3 Dependence on wheelchair; Z85.46 Personal history of malignant neoplasm of prostate; Z23 Encounter for immunization
CPT/HCPCS: J1650; Q9967

== ENCOUNTER 2019-09-24 21:37 | Observation (INO) | payer MEDICARE, MEDICAID ==
[~2019-09-24] VITALS: Ht 185.4 cm; Wt 76.7 kg
[~2019-09-24 21:37] MED LIST changes: +ASPIRIN EC325 M1 PO; +CARVEDILOL6.25 MG PO; +CEFPODOXIME PR100 MG PO; +MULTIVITAMI3; +TRESIBA FL100 UNIT/M SC; +ZESTRIL10 M1 PO
[2019-09-24] MEDS ORDERED: MULTIVITAMI1 PO (21:52)
[2019-09-24] MEDS ORDERED: (None)1 % OU (21:55)
[2019-09-24 22:21] LABS: URINE BILIRUBIN - DIPSTICK NEGATIVE (NEGATIVE); URINE BLOOD DIPSTICK NEGATIVE (NEGATIVE); URINE COLOR YELLOW; URINE GLUCOSE - DIPSTICK NEGATIVE (NEGATIVE); URINE KETONE NEGATIVE (NEGATIVE); URINE NITRITE - DIPSTICK NEGATIVE (Negative); URINE PROTEIN - DIPSTICK NEGATIVE (NEG-TRACE); URINE SPECIFIC GRAVITY >=1.030; URINE UROBILINOGEN - DIPSTICK 0.2 E.U./dL (0.2)
[2019-09-24 22:22] LABS: HEMATOCRIT 37.4 % (39.0-50.0); HEMOGLOBIN 11.7 g/dl (14.0-18.0); IMMATURE GRANULOCYTES 1.3 % (0.0-5.0); MEAN CELL VOLUME 86.4 fL CALC (80.0-100.0); MEAN CORPUSCULAR HGB CONC 31.3 g/L CALC (32.0-36.0); NEUT# 3.85 thou/uL (1.82-7.42); RED BLOOD COUNT 4.33 mill/uL (4.70-6.10); RED CELL DISTRI WIDTH 13.4 % (11.5-15.5)
[2019-09-24 22:26] LABS: URINE LEUK ESTERASE SMALL (NEGATIVE)
[2019-09-24 22:28] LABS: URINE SQUAMOUS EPITHELIAL CELL FEW EPI/hpf (0-FEW)
[2019-09-24 22:37] LABS: ACT PARTIAL THROMBO TIME 24.3 SECONDS (20.0-32.5); ALBUMIN 3.8 g/dL (3.2-5.0); ALKALINE PHOSPHATASE 123 u/l (38-126); ANION GAP 15 (6-22 (CALC)); BILIRUBIN, TOTAL 0.5 mg/dL (0.0-1.4); BUN 17 mg/dL (8-23); BUN/CREATININE RATIO 18 (12-20 (CALC)); CARBON DIOXIDE 25 mmol/l (22-30); CHLORIDE 104 mmol/l (95-108); GFR > 60 ML/MIN (>=60 (CALC)); GFR FOR AFR.AMER. > 60 ML/MIN (>=60 (CALC)); POTASSIUM 4.2 mmol/l (3.5-5.1); PROTHROMBIN TIME 10.2 SECONDS (9.0-12.5); SGOT/AST 23 u/l (19-48); SODIUM 139 mmol/l (137-146); TOTAL PROTEIN 7.5 g/dL (6.3-8.2)
[2019-09-24 22:54] LABS: MYOGLOBIN 30 ng/mL (0 - 121)
[2019-09-24 23:50] VITALS: BP 137/78
[2019-09-25 05:15] VITALS: BP 126/73
[2019-09-25 08:20] VITALS: BP 126/75
[2019-09-25 10:48] VITALS: BP 147/73
[2019-09-25 15:01] VITALS: BP 123/75
[2019-09-25 19:01] VITALS: BP 113/68
[2019-09-26 00:27] VITALS: BP 122/75
[2019-09-26 05:23] VITALS: BP 139/73
[2019-09-26 08:00] VITALS: BP 138/91
[2019-09-26 10:27] LABS: HEMATOCRIT 37.1 % (39.0-50.0); HEMOGLOBIN 11.5 g/dl (14.0-18.0); IMMATURE GRANULOCYTES 1.1 % (0.0-5.0); MEAN CELL VOLUME 86.9 fL CALC (80.0-100.0); MEAN CORPUSCULAR HGB 26.9 pG CALC (26.0-32.0); NEUT# 3.88 thou/uL (1.82-7.42); RED BLOOD COUNT 4.27 mill/uL (4.70-6.10); RED CELL DISTRI WIDTH 13.5 % (11.5-15.5)
[2019-09-26 11:05] VITALS: BP 105/65
[2019-09-26 11:21] LABS: ANION GAP 14 (6-22 (CALC)); BUN 14 mg/dL (8-23); BUN/CREATININE RATIO 15 (12-20 (CALC)); CARBON DIOXIDE 25 mmol/l (22-30); CHLORIDE 104 mmol/l (95-108); GFR > 60 ML/MIN (>=60 (CALC)); GFR FOR AFR.AMER. > 60 ML/MIN (>=60 (CALC)); MAGNESIUM 2.2 mg/dL (1.6-2.3); POTASSIUM 4.3 mmol/l (3.5-5.1); SODIUM 139 mmol/l (137-146)
[2019-09-26 16:00] VITALS: BP 123/77
[2019-09-26 19:02] VITALS: BP 131/69
[2019-09-27 00:05] VITALS: BP 122/73
[2019-09-27 04:05] VITALS: BP 138/69
[2019-09-27 06:15] LABS: HEMATOCRIT 36.4 % (39.0-50.0); HEMOGLOBIN 11.3 g/dl (14.0-18.0); IMMATURE GRANULOCYTES 1.3 % (0.0-5.0); MEAN CELL VOLUME 87.3 fL CALC (80.0-100.0); MEAN CORPUSCULAR HGB 27.1 pG CALC (26.0-32.0); NEUT# 3.91 thou/uL (1.82-7.42); RED BLOOD COUNT 4.17 mill/uL (4.70-6.10); RED CELL DISTRI WIDTH 13.5 % (11.5-15.5)
[2019-09-27 06:33] LABS: ANION GAP 14 (6-22 (CALC)); BUN 16 mg/dL (8-23); BUN/CREATININE RATIO 18 (12-20 (CALC)); CARBON DIOXIDE 24 mmol/l (22-30); CHLORIDE 107 mmol/l (95-108); CREATININE 0.9 mg/dL (0.7-1.3); GFR > 60 ML/MIN (>=60 (CALC)); GFR FOR AFR.AMER. > 60 ML/MIN (>=60 (CALC)); POTASSIUM 4.7 mmol/l (3.5-5.1); SODIUM 139 mmol/l (137-146)
[2019-09-27 07:55] VITALS: BP 140/81
[2019-09-27] MEDS ORDERED: ADLT ASA LOW81 MG PO (10:30)
[2019-09-27] MEDS ORDERED: PLAVIX75 MG PO (10:30)
[2019-09-27 11:02] VITALS: BP 127/84
[2019-09-27 16:00] VITALS: BP 120/77
== END 2019-09-27 17:46 ==
LOC: ED 21:37 → ED-I 23:00 → ED 23:15 → MS2 23:16
PROVIDERS: Family Medicine; Nurse Practitioner Family; ADMIT Internal Medicine; ATTEND Internal Medicine
DX: G45.9 Transient cerebral ischemic attack, unspecified (principal); I69.322 Dysarthria following cerebral infarction; I69.392 Facial weakness following cerebral infarction; I69.331 Monoplegia of upper limb following cerebral infarction affecting right dominant side; I69.398 Other sequelae of cerebral infarction; H53.8 Other visual disturbances; R82.71 Bacteriuria; I10 Essential (primary) hypertension; E11.40 Type 2 diabetes mellitus with diabetic neuropathy, unspecified; M06.9 Rheumatoid arthritis, unspecified; E78.5 Hyperlipidemia, unspecified; K21.9 Gastro-esophageal reflux disease without esophagitis; M19.90 Unspecified osteoarthritis, unspecified site; Z79.4 Long term (current) use of insulin; Z85.46 Personal history of malignant neoplasm of prostate; Z92.3 Personal history of irradiation; Z21 Asymptomatic human immunodeficiency virus [HIV] infection status; Z79.899 Other long term (current) drug therapy
CPT/HCPCS: G0378; J1650; Q3014

== ENCOUNTER 2020-12-24 23:45 | Emergency (ER) | payer MEDICARE, MEDICAID ==
[~2020-12-24] VITALS: Ht 185.4 cm; Wt 75.0 kg
[~2020-12-24 23:45] MED LIST changes: +(None)1 % OU; +ADLT ASA LOW81 MG PO; +MULTIVITAMI1 PO; +PLAVIX75 MG PO
[2020-12-25] MEDS ORDERED: AMLODIPINE BESYL5 MG PO (00:07)
[2020-12-25] MEDS ORDERED: ASPIRIN CHEWABL81 MG PO (00:08)
[2020-12-25] MEDS ORDERED: CLOPIDOGREL75 MG PO (00:10)
[2020-12-25] MEDS ORDERED: GABAPENTIN100 MG PO (00:11)
[2020-12-25] MEDS ORDERED: JARDIANCE10 MG PO (00:12)
[2020-12-25 00:39] LABS: HEMATOCRIT 38.2 % (39.0-50.0); HEMOGLOBIN 11.7 g/dl (14.0-18.0); IMMATURE GRANULOCYTES 1.9 % (0.0-5.0); MEAN CELL VOLUME 87.4 fL CALC (80.0-100.0); MEAN CORPUSCULAR HGB 26.8 pG CALC (26.0-32.0); MEAN CORPUSCULAR HGB CONC 30.6 g/dL CAL (32.0-36.0); NEUT# 6.05 thou/uL (1.82-7.42); RED BLOOD COUNT 4.37 mill/uL (4.70-6.10); RED CELL DISTRI WIDTH 14.2 % (11.5-15.5)
[2020-12-25 00:57] LABS: ALBUMIN 3.9 g/dL (3.2-5.0); ALKALINE PHOSPHATASE 102 u/l (38-126); AMYLASE 151 u/l (30-110); ANION GAP 11 (6-22 (CALC)); BILIRUBIN, TOTAL 0.4 mg/dL (0.0-1.4); BUN 29 mg/dL (8-23); BUN/CREATININE RATIO 24 (12-20 (CALC)); CARBON DIOXIDE 26 mmol/l (22-30); CHLORIDE 107 mmol/l (95-108); CREATININE 1.2 mg/dL (0.7-1.3); GFR 59 ML/MIN (>=60 (CALC)); GFR FOR AFR.AMER. > 60 ML/MIN (>=60 (CALC)); LIPASE 432 u/l (23-300); POTASSIUM 4.3 mmol/l (3.5-5.1); SGOT/AST 20 u/l (19-48); SODIUM 140 mmol/l (137-146); TOTAL PROTEIN 7.4 g/dL (6.3-8.2)
[2020-12-25 00:59] LABS: ACT PARTIAL THROMBO TIME 22.2 SECONDS (20.0-32.5)
[2020-12-25 02:45] VITALS: BP 99/56
== END 2020-12-25 02:45 | disposition short-term general hospital (02) ==
LOC: ED 23:45
DX: K92.0 Hematemesis (principal); I10 Essential (primary) hypertension; E11.9 Type 2 diabetes mellitus without complications; Z79.82 Long term (current) use of aspirin; Z85.46 Personal history of malignant neoplasm of prostate; Z92.3 Personal history of irradiation; Z21 Asymptomatic human immunodeficiency virus [HIV] infection status; Z79.4 Long term (current) use of insulin; Z86.73 Personal history of transient ischemic attack (TIA), and cerebral infarction without residual deficits; Z20.822 Contact with and (suspected) exposure to COVID-19
CPT/HCPCS: S0164

== ENCOUNTER 2021-04-11 10:59 | Emergency (ER) | payer MEDICARE, MEDICAID ==
[~2021-04-11] VITALS: Ht 185.4 cm; Wt 98.0 kg
[~2021-04-11 10:59] MED LIST changes: +ASPIRIN CHEWABL81 MG PO; +CLOPIDOGREL75 MG PO; +GABAPENTIN100 MG PO; +JARDIANCE10 MG PO
[2021-04-11 11:40] LABS: HEMOGLOBIN 13.5 g/dl (14.0-18.0); MEAN CELL VOLUME 84.7 fL CALC (80.0-100.0); MEAN CORPUSCULAR HGB 25.8 pG CALC (26.0-32.0); MEAN CORPUSCULAR HGB CONC 30.5 g/dL CAL (32.0-36.0); NEUT# 6.4 thou/uL (1.82-7.42); RED BLOOD COUNT 5.23 mill/uL (4.70-6.10); RED CELL DISTRI WIDTH 14.3 % (11.5-15.5)
[2021-04-11] MEDS ORDERED: [UNRECOGNIZED DRUG - OTHER] PO (11:42)
[2021-04-11 11:44] LABS: HEMATOCRIT 44.3 % (39.0-50.0)
[2021-04-11] MEDS ORDERED: FERROUS SULF325 M2 PO (11:44)
[2021-04-11] MEDS ORDERED: REPAGLINIDE2 MG PO (11:45)
[2021-04-11 11:59] LABS: ALBUMIN 4.3 g/dL (3.2-5.0); ALKALINE PHOSPHATASE 143 u/l (38-126); ANION GAP 14 (6-22 (CALC)); BUN 16 mg/dL (8-23); BUN/CREATININE RATIO 11 (12-20 (CALC)); CARBON DIOXIDE 27 mmol/l (22-30); CHLORIDE 97 mmol/l (95-108); CREATININE 1.4 mg/dL (0.7-1.3); GFR 49 ML/MIN (>=60 (CALC)); GFR FOR AFR.AMER. 60 ML/MIN (>=60 (CALC)); LIPASE 213 u/l (23-300); POTASSIUM 4.9 mmol/l (3.5-5.1); SGOT/AST 32 u/l (19-48); SODIUM 133 mmol/l (137-146); TOTAL PROTEIN 8.3 g/dL (6.3-8.2)
[2021-04-11 12:12] LABS: BILIRUBIN, TOTAL 0.8 mg/dL (0.0-1.4)
[2021-04-11 13:28] LABS: URINE BILIRUBIN - DIPSTICK NEGATIVE (NEGATIVE); URINE BLOOD DIPSTICK NEGATIVE (NEGATIVE); URINE COLOR YELLOW; URINE GLUCOSE - DIPSTICK 100 mg/dL (NEGATIVE); URINE KETONE NEGATIVE (NEGATIVE); URINE LEUK ESTERASE NEGATIVE (NEGATIVE); URINE PH 7.5 (4.5-8.0); URINE PROTEIN - DIPSTICK NEGATIVE (NEG-TRACE); URINE UROBILINOGEN - DIPSTICK 0.2 E.U./dL (0.2)
[2021-04-11 13:30] LABS: URINE NITRITE - DIPSTICK NEGATIVE (Negative)
[2021-04-11] MEDS ORDERED: IBUPROFEN600 MG PO (22:20)
[2021-04-11 23:00] VITALS: BP 163/82
[2021-04-28] MEDS ORDERED: DICLOFENAC SODIUM1 % TOP (14:25)
[2021-04-28] MEDS ORDERED: TAMSULOSIN0.4 MG PO (14:25)
[2021-04-28] MEDS ORDERED: PROTONIX40 M2 PO (14:26)
[2021-04-28] MEDS ORDERED: XALATAN 0.005%2.5 ML OU (14:26)
[2021-04-28] MEDS ORDERED: MELATONIN3 MG PO (14:26)
[2021-04-28] MEDS ORDERED: TRULICITY1.5 MG/0.5 SC (14:27)
[2021-04-28] MEDS ORDERED: TRESIBA FL100 UNIT/M SC (14:27)
[2021-05-26] MEDS ORDERED: HYDROCODONE/ACE1 T12 PO (12:01)
[2021-05-26] MEDS ORDERED: MAALOX ADVAN PO (12:02)
[2021-05-26] MEDS ORDERED: PROTONIX40 M2 PO (12:04)
[2021-05-26] MEDS ORDERED: PEG 3350 XX (12:04)
[2021-05-26] MEDS ORDERED: ACETAMINOPHEN325 MG PO (12:05)
== END 2021-04-11 23:27 | disposition home or self-care (01) ==
LOC: ED 10:59
DX: N20.1 Calculus of ureter (principal); I10 Essential (primary) hypertension; E11.9 Type 2 diabetes mellitus without complications; Z21 Asymptomatic human immunodeficiency virus [HIV] infection status; Z86.16 Personal history of COVID-19; Z85.46 Personal history of malignant neoplasm of prostate
CPT/HCPCS: Q9967

== ENCOUNTER 2021-04-30 07:13 | Day surgery (SDC) | payer MEDICARE, MEDICAID ==
[~2021-04-30 07:13] MED LIST changes: +DICLOFENAC SODIUM1 % TOP; +FERROUS SULF325 M2 PO; +IBUPROFEN600 MG PO; +MELATONIN3 MG PO; +PROTONIX40 M2 PO; +REPAGLINIDE2 MG PO; +TAMSULOSIN0.4 MG PO; +TRULICITY1.5 MG/0.5 SC; +XALATAN 0.005%2.5 ML OU; +[UNRECOGNIZED DRUG - OTHER] PO
[2021-04-30 10:55] VITALS: BP 145/84
[2021-05-26] MEDS ORDERED: HYDROCODONE/ACE1 T12 PO (12:01)
[2021-05-26] MEDS ORDERED: MAALOX ADVAN PO (12:02)
[2021-05-26] MEDS ORDERED: PEG 3350 XX (12:04)
[2021-05-26] MEDS ORDERED: PROTONIX40 M2 PO (12:04)
[2021-05-26] MEDS ORDERED: ACETAMINOPHEN325 MG PO (12:05)
== END 2021-04-30 11:35 | disposition home or self-care (01) ==
LOC: ORM 07:13
PROVIDERS: ATTEND Urology
PROC: 0T768DZ Dilation of Right Ureter with Intraluminal Device, Via Natural or Artificial Opening Endoscopic (ICD-10-PCS; principal; 2021-04-30)
DX: N13.2 Hydronephrosis with renal and ureteral calculous obstruction (principal); N13.8 Other obstructive and reflux uropathy; N47.1 Phimosis; N28.1 Cyst of kidney, acquired; K21.9 Gastro-esophageal reflux disease without esophagitis; E11.9 Type 2 diabetes mellitus without complications; I10 Essential (primary) hypertension; E78.5 Hyperlipidemia, unspecified; N40.0 Benign prostatic hyperplasia without lower urinary tract symptoms; Z79.02 Long term (current) use of antithrombotics/antiplatelets; Z86.73 Personal history of transient ischemic attack (TIA), and cerebral infarction without residual deficits; Z85.46 Personal history of malignant neoplasm of prostate
CPT/HCPCS: C1769; J2710; Q9967

== ENCOUNTER → 2021-05-30 | Day surgery (SDC) | payer MEDICARE, MEDICAID ==
[~2021-05-30] MED LIST changes: +ACETAMINOPHEN325 MG PO; +HYDROCODONE/ACE1 T12 PO; +MAALOX ADVAN PO; +PEG 3350 XX
[2021-05-30 14:28] VITALS: BP 148/85
== END | disposition home or self-care (01) ==
LOC: ORM 08:25
PROVIDERS: ATTEND Urology
PROC: 0TC68ZZ Extirpation of Matter from Right Ureter, Via Natural or Artificial Opening Endoscopic (ICD-10-PCS; principal; 2021-05-30)
PROC: BT1DZZZ Fluoroscopy of Right Kidney, Ureter and Bladder (ICD-10-PCS; 2021-05-30)
PROC: 0VTTXZZ Resection of Prepuce, External Approach (ICD-10-PCS; 2021-05-30)
DX: N20.1 Calculus of ureter (principal); N47.1 Phimosis; N40.1 Benign prostatic hyperplasia with lower urinary tract symptoms; N13.8 Other obstructive and reflux uropathy; E11.9 Type 2 diabetes mellitus without complications; I10 Essential (primary) hypertension; E78.5 Hyperlipidemia, unspecified; H40.9 Unspecified glaucoma; K21.9 Gastro-esophageal reflux disease without esophagitis; Z85.46 Personal history of malignant neoplasm of prostate; Z86.73 Personal history of transient ischemic attack (TIA), and cerebral infarction without residual deficits
CPT/HCPCS: C1769; J2710; Q9967

== ENCOUNTER 2022-05-24 16:56 | Emergency (ER) | payer MEDICARE, MEDICAID ==
[~2022-05-24] VITALS: Ht 185.4 cm; Wt 69.9 kg
[2022-05-24] VITALS (9 sets, daily range): BP systolic 90–140; BP diastolic 47–96
[2022-05-24 18:15] LABS: IMMATURE GRANULOCYTES 2.1 % (0.0-5.0); MEAN CELL VOLUME 85.9 fL CALC (80.0-100.0); MEAN CORPUSCULAR HGB 27.3 pG CALC (26.0-32.0); MEAN CORPUSCULAR HGB CONC 31.8 g/dL CAL (32.0-36.0); NEUT# 7.73 thou/uL (1.82-7.42); RED BLOOD COUNT 3.33 mill/uL (4.70-6.10); RED CELL DISTRI WIDTH 13.7 % (11.5-15.5)
[2022-05-24 18:19] LABS: HEMATOCRIT 28.6 % (39.0-50.0); HEMOGLOBIN 9.1 g/dl (14.0-18.0)
[2022-05-24 18:31] LABS: INTERNATIONAL NORMALIZED RATIO 1.1 RATIO (0.7-1.3); PROTHROMBIN TIME 11.1 SECONDS (9.0-12.5)
[2022-05-24 18:34] LABS: ALKALINE PHOSPHATASE 114 u/l (38-126); ANION GAP 11 (6-22 (CALC)); BUN 26 mg/dL (8-23); BUN/CREATININE RATIO 27 (12-20 (CALC)); CARBON DIOXIDE 26 mmol/l (22-30); CHLORIDE 106 mmol/l (95-108); CPK 62 u/l (52-200); GFR FOR AFR.AMER. > 60 ML/MIN (>=60 (CALC)); GFR OTHER RACES > 60 ML/MIN (>=60 (CALC)); LIPASE 401 u/l (23-300); MAGNESIUM 2.5 mg/dL (1.6-2.3); POTASSIUM 4.2 mmol/l (3.5-5.1); SGOT/AST 36 u/l (19-48); SODIUM 139 mmol/l (137-146); TOTAL PROTEIN 7.4 g/dL (6.3-8.2)
[2022-05-24 18:35] LABS: ALBUMIN 3.3 g/dL (3.2-5.0); BILIRUBIN, TOTAL 0.4 mg/dL (0.0-1.4)
[2022-05-24] MEDS ORDERED: ACETAMINOPHEN500 M1 (18:52)
[2022-05-24 18:53] LABS: URINE BLOOD DIPSTICK LARGE (NEGATIVE); URINE COLOR YELLOW; URINE GLUCOSE - DIPSTICK NEGATIVE (NEGATIVE); URINE KETONE NEGATIVE (NEGATIVE); URINE LEUK ESTERASE NEGATIVE (NEGATIVE); URINE PH 6.5 (4.5-8.0); URINE PROTEIN - DIPSTICK 100 mg/dL (NEG-TRACE); URINE UROBILINOGEN - DIPSTICK 0.2 E.U./dL (0.2)
[2022-05-24] MEDS ORDERED: ASPIRIN ADULT L81 M2 (18:53)
[2022-05-24] MEDS ORDERED: LIPITOR40 M1 PO (18:54)
[2022-05-24] MEDS ORDERED: CARVEDILOL6.25 MG PO (18:54)
[2022-05-24] MEDS ORDERED: PLAVIX75 MG PO (18:54)
[2022-05-24] MEDS ORDERED: DICLOFENAC SODIUM1 % (18:55)
[2022-05-24] MEDS ORDERED: COMPLERA PO (18:55)
[2022-05-24 18:56] LABS: URINE BILIRUBIN - DIPSTICK SMALL (NEGATIVE); URINE NITRITE - DIPSTICK NEGATIVE (Negative)
[2022-05-24] MEDS ORDERED: FINASTERIDE5 MG PO (18:56)
[2022-05-24] MEDS ORDERED: KAOPECTATE240 MG PO (18:56)
[2022-05-24] MEDS ORDERED: DULCOLAX10 MG RE (18:56)
[2022-05-24] MEDS ORDERED: HYDROCORT AC13 EX (18:56)
[2022-05-24] MEDS ORDERED: MAALOX ADVAN PO (18:57)
[2022-05-24] MEDS ORDERED: XALATAN0.005 % OP (18:57)
[2022-05-24] MEDS ORDERED: OZEMPIC 8 MG/3M1 INJ (18:58)
[2022-05-24] MEDS ORDERED: PEG 3350 XX (18:58)
[2022-05-24] MEDS ORDERED: REPAGLINIDE2 MG (18:59)
[2022-05-24] MEDS ORDERED: TAMSULOSIN HCL0.4 MG PO (18:59)
[2022-05-24 19:05] LABS: URINE BACTERIA FEW hpf; URINE RBC 50-100 RBC/hpf (0-5); URINE SQUAMOUS EPITHELIAL CELL FEW EPI/hpf (0-FEW)
[2022-05-24] MEDS ORDERED: TRESIBA FL100 UNIT/M (19:05)
[2022-05-24] MEDS ORDERED: ACETAMINOPHEN650 M2 (19:06)
== END 2022-05-24 22:10 | disposition short-term general hospital (02) ==
LOC: ED 16:56
PROVIDERS: Internal Medicine
DX: K92.0 Hematemesis (principal); K62.5 Hemorrhage of anus and rectum; D64.9 Anemia, unspecified; K22.89 Other specified disease of esophagus; I10 Essential (primary) hypertension; E11.9 Type 2 diabetes mellitus without complications; Z21 Asymptomatic human immunodeficiency virus [HIV] infection status; Z79.4 Long term (current) use of insulin; Z79.01 Long term (current) use of anticoagulants; Z86.73 Personal history of transient ischemic attack (TIA), and cerebral infarction without residual deficits
CPT/HCPCS: Q9967; S0164

== ENCOUNTER 2022-06-10 18:45 | Emergency (ER) | payer MEDICARE, MEDICAID ==
[2022-06-10] VITALS (14 sets, daily range): BP systolic 120–153; BP diastolic 68–100
[~2022-06-10] VITALS: Ht 185.4 cm; Wt 71.0 kg
[~2022-06-10 18:45] MED LIST changes: +ACETAMINOPHEN500 M1; +ACETAMINOPHEN650 M2; +ASPIRIN ADULT L81 M2; +DICLOFENAC SODIUM1 %; +DULCOLAX10 MG RE; +FINASTERIDE5 MG PO; +HYDROCORT AC13 EX; +KAOPECTATE240 MG PO; +LIPITOR40 M1 PO; +OZEMPIC 8 MG/3M1 INJ; +REPAGLINIDE2 MG; +TAMSULOSIN HCL0.4 MG PO; +TRESIBA FL100 UNIT/M; +XALATAN0.005 % OP
== END 2022-06-10 23:08 | disposition home or self-care (01) ==
LOC: ED 18:45
DX: S30.0XXA Contusion of lower back and pelvis, initial encounter (principal); I10 Essential (primary) hypertension; E11.9 Type 2 diabetes mellitus without complications; L89.152 Pressure ulcer of sacral region, stage 2; W06.XXXA Fall from bed, initial encounter; Y92.129 Unspecified place in nursing home as the place of occurrence of the external cause; Z79.4 Long term (current) use of insulin; Z21 Asymptomatic human immunodeficiency virus [HIV] infection status; Z85.46 Personal history of malignant neoplasm of prostate; Z86.73 Personal history of transient ischemic attack (TIA), and cerebral infarction without residual deficits

== ENCOUNTER → 2023-01-25 | Day surgery (SDC) | payer MEDICARE, MEDICAID ==
[~2023-01-25] VITALS: Ht 185.4 cm; Wt 62.1 kg
[~2023-01-25] MED LIST changes: +C 500 PO; +FERROUS SULF325 M3 PO; +OMEPRAZOLE DR40 MG; +PRAVASTATIN SOD20 MG PO; +PROTONIX20 M1 PO; +ZYRTEC10 M5 PO
[2023-01-25 13:36] VITALS: BP 101/69
== END | disposition home or self-care (01) ==
LOC: ENDO 07:57 → ORM 12:05 → ENDO 12:05 → ORM 13:25
PROVIDERS: ATTEND Internal Medicine Gastroenterology
PROC: 0DJ08ZZ Inspection of Upper Intestinal Tract, Via Natural or Artificial Opening Endoscopic (ICD-10-PCS; principal; 2023-01-25)
DX: K22.2 Esophageal obstruction (principal); K20.90 Esophagitis, unspecified without bleeding; Z79.899 Other long term (current) drug therapy; Z79.02 Long term (current) use of antithrombotics/antiplatelets

== ENCOUNTER 2023-06-14 13:08 | Emergency (ER) | payer MEDICARE, OTHER ==
[2023-06-14] VITALS (15 sets, daily range): BP systolic 100–139; BP diastolic 56–96
[~2023-06-14] VITALS: Ht 185.4 cm; Wt 64.5 kg
[2023-06-14 14:02] LABS: BASO% 0.7 % (0-3); EOS% 0.7 % (0-8); IMMATURE GRANULOCYTES 0.3 % (0.0-5.0); LYMPH% 35.3 % (15-41); MEAN CELL VOLUME 89.6 fL CALC (80.0-100.0); MEAN CORPUSCULAR HGB 28.5 pG CALC (26.0-32.0); MEAN CORPUSCULAR HGB CONC 31.8 g/dL CAL (32.0-36.0); MONO% 6.6 % (2-13); NEUT# 3.44 thou/uL (1.82-7.42); NEUT% 56.4 % (42-76); RED BLOOD COUNT 4.98 mill/uL (4.70-6.10); RED CELL DISTRI WIDTH 13.2 % (11.5-15.5)
[2023-06-14 14:14] LABS: HEMATOCRIT 44.6 % (39.0-50.0); HEMOGLOBIN 14.2 g/dl (14.0-18.0)
[2023-06-14 14:58] LABS: ALBUMIN 4.3 g/dL (3.2-5.0); ALKALINE PHOSPHATASE 90 u/l (38-126); ANION GAP 18 (6-22 (CALC)); BILIRUBIN, TOTAL 0.9 mg/dL (0.2-1.3); BUN 26 mg/dL (8-23); BUN/CREATININE RATIO 21 (12-20 (CALC)); CARBON DIOXIDE 17 mmol/l (22-30); CHLORIDE 112 mmol/l (95-108); CREATININE 1.2 mg/dL (0.7-1.3); GFR FOR AFR.AMER. > 60 ML/MIN (>=60 (CALC)); GFR OTHER RACES 59 ML/MIN (>=60 (CALC)); LIPASE 116 u/l (23-300); POTASSIUM 3.6 mmol/l (3.5-5.1); SGOT/AST 27 u/l (19-48); SODIUM 143 mmol/l (137-146); TOTAL PROTEIN 8.1 g/dL (6.3-8.2)
[2023-06-14 15:44] LABS: URINE COLOR DK. YELLOW; URINE GLUCOSE - DIPSTICK NEGATIVE (NEGATIVE)
[2023-06-14 15:45] LABS: URINE BLOOD DIPSTICK NEGATIVE (NEGATIVE); URINE KETONE TRACE mg/dL (NEGATIVE); URINE LEUK ESTERASE NEGATIVE (NEGATIVE); URINE NITRITE - DIPSTICK NEGATIVE (Negative); URINE PH 5.5 (4.5-8.0); URINE PROTEIN - DIPSTICK 100 mg/dL (NEG-TRACE); URINE SPECIFIC GRAVITY >=1.030; URINE UROBILINOGEN - DIPSTICK 0.2 E.U./dL (0.2)
[2023-06-14 15:52] LABS: URINE AMORPH SEDIMENT MODERATE hpf (NONE-FER); URINE MUCUS MANY hpf (NONE-FEW); URINE RENAL EPITHELIAL CELLS FEW hpf
[2023-06-14] MEDS ORDERED: KEFLEX500 MG PO (16:40)
[2023-06-14] MEDS ORDERED: ONDANSETRON4 MG PO (16:40)
== END 2023-06-14 18:06 | disposition home or self-care (01) ==
LOC: ED 13:08
PROVIDERS: Nurse Practitioner
DX: R11.2 Nausea with vomiting, unspecified (principal); R19.7 Diarrhea, unspecified; N39.0 Urinary tract infection, site not specified; H91.90 Unspecified hearing loss, unspecified ear; I10 Essential (primary) hypertension; E11.9 Type 2 diabetes mellitus without complications; Z86.73 Personal history of transient ischemic attack (TIA), and cerebral infarction without residual deficits; Z85.46 Personal history of malignant neoplasm of prostate; Z92.3 Personal history of irradiation; Z21 Asymptomatic human immunodeficiency virus [HIV] infection status; Z79.4 Long term (current) use of insulin

== ENCOUNTER 2024-05-16 20:39 | Emergency (ER) | payer MEDICARE, MEDICAID ==
[~2024-05-16] VITALS: Ht 185.4 cm; Wt 50.0 kg
[~2024-05-16 20:39] MED LIST changes: -C 500 PO; +FINASTERIDE1 MG; +KEFLEX500 MG PO; +KLOR-CON M2020 MEQ PO; +LINZESS72 MCG PO; +MIRTAZAPINE15 MG PO; +ONDANSETRON4 MG PO; +TRAMADOL HCL50 MG PO; +TRESIBA100 UNIT/M; +VITAMIN C250 MG PO
[2024-05-16 21:02] VITALS: BP 120/70
[2024-05-16] MEDS ORDERED: ONDANSETRON HCl 4 MG/2 ML SDV IV ONE (21:05)
[2024-05-16] MEDS ORDERED: SODIUM CHLORIDE 0.9% 1,000 ML IV ONE (21:05)
[2024-05-16 21:44] LABS: BASO% 0.3 % (0-3); EOS% 1.1 % (0-8); HEMATOCRIT 40.6 % (39.0-50.0); HEMOGLOBIN 12.7 g/dl (14.0-18.0); IMMATURE GRANULOCYTES 0.8 % (0.0-5.0); LYMPH% 18.2 % (15-41); MEAN CELL VOLUME 92.7 fL CALC (80.0-100.0); MEAN CORPUSCULAR HGB CONC 31.3 g/dL CAL (32.0-36.0); MONO% 7.1 % (2-13); NEUT# 5.34 thou/uL (1.82-7.42); NEUT% 72.5 % (42-76); RED BLOOD COUNT 4.38 mill/uL (4.70-6.10); RED CELL DISTRI WIDTH 12.6 % (11.5-15.5)
[2024-05-16 21:57] LABS: POTASSIUM 4.7 mmol/l (3.5-5.1)
[2024-05-16] MEDS ORDERED: MULTI VIT PO (22:11)
[2024-05-16] MEDS ORDERED: ARTIFI TEAR1 OS (22:20)
[2024-05-16 23:15] VITALS: BP 120/70
== END 2024-05-16 23:15 | disposition home or self-care (01) ==
LOC: ED 20:39
PROVIDERS: Family Medicine
DX: Z04.3 Encounter for examination and observation following other accident (principal); K21.9 Gastro-esophageal reflux disease without esophagitis; L89.152 Pressure ulcer of sacral region, stage 2; R64 Cachexia; E11.65 Type 2 diabetes mellitus with hyperglycemia; I10 Essential (primary) hypertension; I25.10 Atherosclerotic heart disease of native coronary artery without angina pectoris; M19.90 Unspecified osteoarthritis, unspecified site; Z86.73 Personal history of transient ischemic attack (TIA), and cerebral infarction without residual deficits; Z85.46 Personal history of malignant neoplasm of prostate; Z92.3 Personal history of irradiation; Z21 Asymptomatic human immunodeficiency virus [HIV] infection status; Z79.4 Long term (current) use of insulin